=== PATIENT | female | born 2005 | race Caucasian/White ===

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

== ENCOUNTER 2023-06-06 17:49 | Emergency (ER) | payer OTHER, SELFPAY ==
[~2023-06-06 17:49] MED LIST changes: -Esmolol 100 MG/10 ML VIAL ONE; -Glycopyrrolate 0.2 MG/ML 5 ML SYRINGE ONE; +Iopamidol-370 76% 500 ML MDV (1 ML CHARGE) ONE; -Ketorolac Tromethamine 30 MG/ML VIAL ONE; -Lidocaine 1% PF 5 ML VIAL ONE; -PHENYLEPHRINE-NS 100 MCG/ML 10 ML SYRINGE ONE; -PROPOFOL 200 MG/20 ML VIAL ONE; -Rocuronium Bromide 10 MG/ML (10ML VIAL) ONE; -Succinylcholine Chloride 20 MG/ML 10 ml SYRINGE FS ONE; -ePHEDrine 50 MG/ML VIAL ONE
[2023-06-06 18:31] LABS: #Basophils 0.1 thou/uL (0.0-0.2); #Eosinphils 0.3 thou/uL (0.0-0.7); #Neutrophils 11.6 thou/uL (1.40-6.50); %Basophils 0.6 % (0.0-1.0); %Eosinophils 1.4 % (0.0-10.0); %Monocytes 5.3 % (0.0-4.0); %Neutrophils 59.5 % (31.0-61.0); Hemoglobin 14.1 g/dL (12.0-16.0); Mean Corpuscular HGB CONC 31.1 g/dL (32.0-36.0); Mean Corpuscular Hemoglobin 24.8 pg (25.0-35.0); Mean Corpuscular Volume 79.8 fl (78.0-98.0); Mean Platelet Volume 9.7 fL (7.4-10.4); Platelet Count 652 10x3/uL (130-400); RBC Distribution Width 14.6 % (11.5-14.5); Red Blood Cell (RBC) Count 5.69 mill/uL (4.00-5.20); White Blood Cell (WBC) Count 19.5 10x3/uL (4.8-10.8)
[2023-06-06 18:37] LABS: BHCG - Serum Negative (NEGATIVE); Pregs Control Background? CLEAR/WHITE (CLR/WHITE); Pregs Control Bar Appear? YES (CONTROL BAR)
[2023-06-06 18:44] LABS: PTT 25.4 sec (22.9-36.1); Prothrombin Time 13.5 sec (12.0-14.7)
[2023-06-06] MEDS ORDERED: LORazepam 2 MG/ML SYR.(CARPUJECT) ONE (18:46)
[2023-06-06 18:59] LABS: ALT (SGPT) 35 U/L (8-55); AST (SGOT) 40 U/L (5-30); Albumin 4.2 g/dL (3.5-5.0); Alkaline Phosphatase 91 U/L (40-100); Anion Gap 15 mmol/L (10-20); BUN (Urea Nitrogen) 12 mg/dL (8.4-21.0); Bilirubin, Total 0.3 mg/dL (0.2-1.2); Calc. Creatinine Clearance 0 mL/min (70-130); Calcium 9.8 mg/dL (7.8-10.44); Carbon Dioxide 20 mmol/L (22-29); Chloride 106 mmol/L (98-107); Estimated GFR 73; Globulin 3.9 g/dL (2.4-3.5); Glucose 90 mg/dL (70-105); Protein, Total 8.1 g/dL (6.0-8.3); Sodium 137 mmol/L (136-145)
[2023-06-06] MEDS ORDERED: Lidocaine 1% PF 5 ML VIAL ONE (19:34)
== END 2023-06-06 20:05 | disposition home or self-care (01) ==
LOC: ERS 17:49
DX: S61.512A Laceration without foreign body of left wrist, initial encounter (principal); S40.212A Abrasion of left shoulder, initial encounter; S10.91XA Abrasion of unspecified part of neck, initial encounter; S40.811A Abrasion of right upper arm, initial encounter; S80.812A Abrasion, left lower leg, initial encounter; S80.811A Abrasion, right lower leg, initial encounter; N83.202 Unspecified ovarian cyst, left side; V43.62XA Car passenger injured in collision with other type car in traffic accident, initial encounter
CPT/HCPCS: 12042; 70450; 71045; 71260; 72125; 74177; 80053; 84703; 85025; 85610; 85730; 86850; 86900; 86901; 93005; 96374; J2060; Q9967

== ENCOUNTER 2023-06-20 09:21 | Emergency (ER) | payer SELFPAY | END 2023-06-20 09:58 | disposition home or self-care (01) | LOC: ERS 09:21 | DX: S61.512D Laceration without foreign body of left wrist, subsequent encounter (principal); W26.9XXD Contact with unspecified sharp object(s), subsequent encounter ==